=== PATIENT | male | born 1970 | race Two or more races ===

== ENCOUNTER → 2024-07-09 | Outpatient (CLI) | payer MEDICAID, SELFPAY ==
--- NOTE | 2024-07-09 09:15 | XR_ITS ---
Examination: Abdomen sonogram, complete Date and time of exam: July 09, 2024 0933 hours INDICATIONS: Upper abdominal pain this week. Technique: Multiple real-time grayscale transabdominal sonographic images of the abdomen have been obtained. Findings: Normal gallbladder Normal common bile duct 0.2 cm Pancreatic head 3.7 cm Aorta not enlarged Liver 13.6 cm fatty infiltration Normal hepatopedal portal venous flow Patent IVC Right kidney 10.7 x 5.2 x 5.5 cm cortex 1.8 cm Left kidney 10.2 x 4.7 x 4.8 cm in the cortex 1.9 cm Moderate renal parenchymal scar formation No hydronephrosis Spleen 10.6 cm IMPRESSION: Normal gallbladder Fatty liver Moderate bilateral renal parenchymal scar formation
== END | disposition home or self-care (01) ==
LOC: CDIM 09:15
PROVIDERS: Referring Provider Physician Assistant; Visit Provider Physician Assistant
DX: K76.0 Fatty (change of) liver, not elsewhere classified (principal); N28.89 Other specified disorders of kidney and ureter
CPT/HCPCS: 76700